=== PATIENT | male | born 1975 | race African-American/Black ===

== ENCOUNTER 2018-03-20 14:50 | Inpatient (IN) | payer MEDICAID ==
[~2018-03-20] VITALS: Ht 185.4 cm; Wt 74.8 kg
[2018-03-20] MEDS ORDERED: LORAZEPAM 2MG/ML CPJ IM ONE (16:30)
[2018-03-20] MEDS ORDERED: SODIUM CHLORIDE 0.9% 1,000 ML IV ONE ×4 (16:45→18:45)
[2018-03-20] MEDS ORDERED: LORAZEPAM 2MG/ML CPJ IV ONE (16:45)
[2018-03-20 16:47] LABS: BASOPHILS % 0.7 % (0.0-2.0); EOSINOPHILS % 0.2 % (0.0-5.0); HEMATOCRIT. 42.4 % (42.0-52.0); HEMOGLOBIN. 13.1 g/dL (14.0-18.0); MEAN CORPUSCULAR HEMOGLOBIN 23.8 pg (28.0-32.0); MEAN CORPUSCULAR VOLUME 77.3 fL (80.0-94.0); MONOCYTES % 5.9 % (2.0-8.0); NEUTROPHILS % 85.2 % (40.0-76.0); PLATELET 235 x1000/uL (130-400); RED BLOOD CELL COUNT 5.48 mill/uL (4.7-6.1); RED CELL DISTRIBUTION WIDTH 16.2 % (11.6-14.6)
[2018-03-20 16:49] LABS: CHLORIDE 105 mEq/L (98-107)
[2018-03-20 16:54] LABS: ETHANOL BLOOD < 10 mg/dL
[2018-03-20 17:11] LABS: CREATINE KINASE 1742 IU/L (39-308)
[2018-03-20] MEDS ORDERED: ZIPRASIDONE MESYLATE 20MG/VIAL IM ONE (17:15)
[2018-03-20] MEDS ORDERED: DIPHENHYDRAMINE 50MG/ML VIAL IV ONE (17:15)
[2018-03-20 18:43] LABS: CREATINE KINASE 1954 IU/L (39-308)
[2018-03-20 19:11] LABS: *AMPHETAMINES SCREEN URINE PRESUMTIVE POSITIVE (NEGATIVE); *BARBITURATES SCREEN URINE NEGATIVE (NEGATIVE); *BENZODIAZEPINES SCREEN URINE PRESUMTIVE POSITIVE (NEGATIVE); *COCAINE SCREEN URINE NEGATIVE (NEGATIVE); METHADONE URINE SCREEN NEGATIVE (NEGATIVE); OPIATES URINE SCREEN NEGATIVE (NEGATIVE); PHENCYCLIDINE URINE SCREEN NEGATIVE (NEGATIVE)
[2018-03-20 19:13] LABS: CANNABINOID URINE SCREEN PRESUMTIVE POSITIVE (NEGATIVE)
[2018-03-20] MEDS ORDERED: IPRATROPIUM/ALBUTEROL 0.5-3(2.5)MG/3ML NEB INH PRN (21:15)
[2018-03-20] MEDS ORDERED: ONDANSETRON HCL 4MG/2ML INJ IV PRN (21:15)
[2018-03-20] MEDS ORDERED: ACETAMINOPHEN 325MG TABLET PO PRN (21:15)
[2018-03-20] MEDS ORDERED: LORAZEPAM 2MG/ML CPJ IV PRN (21:15)
[2018-03-20] MEDS ORDERED: DIPHENHYDRAMINE 50MG/ML VIAL IV PRN (21:15)
[2018-03-20] MEDS: SODIUM CHLORIDE 0.9% 1,000 ML IV SCH (21:27)
[2018-03-20 21:57] LABS: PHOSPHORUS 1.9 mg/dL (2.5-4.9)
[2018-03-20 22:20] LABS: HEPATITIS B SURFACE ANTIGEN NEGATIVE
[2018-03-20 23:03] LABS: HEPATITIS A AB IGM NEGATIVE (NEGATIVE)
[2018-03-21 05:39] LABS: BASOPHILS % 0.4 % (0.0-2.0); EOSINOPHILS % 1.2 % (0.0-5.0); HEMATOCRIT. 40.4 % (42.0-52.0); HEMOGLOBIN. 12.5 g/dL (14.0-18.0); LYMPHOCYTES % 14.2 % (20.0-50.0); MEAN CORPUSCULAR HEMOGLOBIN 23.7 pg (28.0-32.0); MEAN CORPUSCULAR VOLUME 76.7 fL (80.0-94.0); MEAN PLATELET VOLUME 8.7 fl (7.4-10.4); MONOCYTES % 5.9 % (2.0-8.0); NEUTROPHILS % 78.3 % (40.0-76.0); PLATELET 208 x1000/uL (130-400); RED BLOOD CELL COUNT 5.26 mill/uL (4.7-6.1); RED CELL DISTRIBUTION WIDTH 16.5 % (11.6-14.6)
[2018-03-21 05:46] LABS: CHLORIDE 110 mEq/L (98-107)
[2018-03-21 05:54] LABS: LDL CHOLESTEROL 75 mg/dL (5-100)
[2018-03-21 05:55] LABS: HDL CHOLESTEROL 56 mg/dL (40-59)
[2018-03-21 06:06] LABS: CREATINE KINASE 1376 IU/L (39-308)
[2018-03-21 09:00] VITALS: BP 116/76
[2018-03-21] MEDS ORDERED: HALOPERIDOL LACTATE 5MG/ML VIAL IM PRN (11:45)
[2018-03-21 12:00] VITALS: BP 120/78
[2018-03-21] MEDS: SODIUM CHLORIDE 0.9% 1,000 ML IV SCH ×2 (13:55→23:00)
[2018-03-21 14:29] LABS: CLARITY URINE TURBID (CLEAR); COLOR URINE AMBER (YELLOW); KETONES URINE 1+ (NEGATIVE); LEUKOCYTE ESTERASE URINE TRACE (NEGATIVE); NITRITE URINE NEGATIVE (NEGATIVE); OCCULT BLOOD URINE NEGATIVE (NEGATIVE); PROTEIN URINE 1+ (NEGATIVE); SPECIFIC GRAVITY URINE 1.027 (1.005-1.030)
[2018-03-21 16:00] VITALS: BP 123/78
[2018-03-21 20:00] VITALS: BP 114/66
[2018-03-21 23:46] VITALS: BP 119/69
[2018-03-22 04:00] VITALS: BP 121/74
[2018-03-22 05:00] VITALS: BP 121/74
[2018-03-22 08:00] VITALS: BP 113/76
[2018-03-22] MEDS: SODIUM CHLORIDE 0.9% 1,000 ML IV SCH (10:24)
[2018-03-22 10:44] LABS: BASOPHILS % 0.8 % (0.0-2.0); EOSINOPHILS % 0.9 % (0.0-5.0); HEMATOCRIT. 38.7 % (42.0-52.0); HEMOGLOBIN. 12.2 g/dL (14.0-18.0); LYMPHOCYTES % 15.3 % (20.0-50.0); MEAN CORPUSCULAR HEMOGLOBIN 23.9 pg (28.0-32.0); MEAN CORPUSCULAR VOLUME 75.7 fL (80.0-94.0); MEAN PLATELET VOLUME 8.5 fl (7.4-10.4); MONOCYTES % 7.3 % (2.0-8.0); NEUTROPHILS % 75.7 % (40.0-76.0); PLATELET 225 x1000/uL (130-400); RED BLOOD CELL COUNT 5.11 mill/uL (4.7-6.1); RED CELL DISTRIBUTION WIDTH 16.4 % (11.6-14.6)
[2018-03-22 10:52] LABS: CHLORIDE 109 mEq/L (98-107)
[2018-03-22 11:00] LABS: CREATINE KINASE 814 IU/L (39-308)
[2018-03-22 12:00] VITALS: BP 121/80
[2018-03-22 13:10] VITALS: BP 121/80
== END 2018-03-22 14:04 | disposition home or self-care (01) | DRG 351 ==
LOC: ER 14:50 → 8WST 18:49 → EDBEDREQ 18:56 → ENRESERV 03-21 07:17
PROVIDERS: ADMIT Internal Medicine; ATTEND Internal Medicine
DX: M62.82 Rhabdomyolysis (principal); F15.90 Other stimulant use, unspecified, uncomplicated; F19.959 Other psychoactive substance use, unspecified with psychoactive substance-induced psychotic disorder, unspecified; F17.200 Nicotine dependence, unspecified, uncomplicated; Z71.51 Drug abuse counseling and surveillance of drug abuser
CPT/HCPCS: 36415; 71045; 73560; 80048; 80061; 80305; 80307; 80329; 82550; 82962; 83735; 84100; 84443; 84484; 86705; 86709; 86803; 87340; 93005; 93306; 93970; 96361; 96372; 96374; 96375; 97161; 97166; 99285; J1200; J1630; J2060; J3486; J7030; J7040

== ENCOUNTER 2018-03-23 03:34 | Emergency (ER) | payer MEDICAID ==
[~2018-03-23] VITALS: Ht 185.4 cm; Wt 80.0 kg
[2018-03-23] MEDS ORDERED: SODIUM CHLORIDE 0.9% 1,000 ML IV ONE (06:30)
[2018-03-23] MEDS ORDERED: RISPERIDONE 1MG TABLET PO STA (06:33)
[2018-03-23 06:57] LABS: CHLORIDE 111 mEq/L (98-107)
[2018-03-23 07:02] LABS: BASOPHILS % 0.7 % (0.0-2.0); EOSINOPHILS % 2.2 % (0.0-5.0); HEMATOCRIT. 39.3 % (42.0-52.0); HEMOGLOBIN. 12.4 g/dL (14.0-18.0); LYMPHOCYTES % 17.7 % (20.0-50.0); MEAN CORPUSCULAR HEMOGLOBIN 24.1 pg (28.0-32.0); MEAN CORPUSCULAR VOLUME 76.5 fL (80.0-94.0); MEAN PLATELET VOLUME 8.8 fl (7.4-10.4); MONOCYTES % 8.1 % (2.0-8.0); NEUTROPHILS % 71.3 % (40.0-76.0); PLATELET 224 x1000/uL (130-400); RED BLOOD CELL COUNT 5.14 mill/uL (4.7-6.1); RED CELL DISTRIBUTION WIDTH 16.5 % (11.6-14.6)
[2018-03-23 07:09] LABS: CREATINE KINASE 849 IU/L (39-308)
[2018-03-23 09:05] LABS: *AMPHETAMINES SCREEN URINE PRESUMTIVE POSITIVE (NEGATIVE); *BARBITURATES SCREEN URINE NEGATIVE (NEGATIVE); *BENZODIAZEPINES SCREEN URINE NEGATIVE (NEGATIVE)
[2018-03-23 09:06] LABS: *COCAINE SCREEN URINE NEGATIVE (NEGATIVE); CANNABINOID URINE SCREEN PRESUMTIVE POSITIVE (NEGATIVE); METHADONE URINE SCREEN NEGATIVE (NEGATIVE); OPIATES URINE SCREEN NEGATIVE (NEGATIVE); PHENCYCLIDINE URINE SCREEN NEGATIVE (NEGATIVE)
[2018-03-23 12:51] VITALS: BP 114/75
== END 2018-03-23 12:57 | disposition left against medical advice (07) ==
LOC: ER 03:34
DX: D64.9 Anemia, unspecified (principal); T43.625A Adverse effect of amphetamines, initial encounter; Y92.9 Unspecified place or not applicable; R74.8 Abnormal levels of other serum enzymes; F17.200 Nicotine dependence, unspecified, uncomplicated; J45.909 Unspecified asthma, uncomplicated; F32.9 Major depressive disorder, single episode, unspecified; Z71.6 Tobacco abuse counseling
CPT/HCPCS: 36415; 71045; 80053; 80305; 82550; 83880; 84484; 85025; 87186; 93005; 99284; 99406; J7030